=== PATIENT | female | born 1940 | race Caucasian/White ===

== ENCOUNTER 2018-11-14 09:48 | Emergency (ER) | payer OTHER ==
[~2018-11-14] VITALS: Ht 149.9 cm; Wt 49.0 kg
[~2018-11-14 09:48] MED LIST: CORTISONE ACETAT; DOLOGEN CAPLET1 EACH PO; MILLIPRED5 MG; NEURONTIN300 MG; OMEGA-3100 MG; OMEPRAZOLE20 MG; RELAFEN500 MG; TRAMADOL HCL-AP1 TAB; ULTRACET
[2018-11-14] MEDS ORDERED: MOBIC7.5 M1 (10:24)
[2018-11-14] MEDS ORDERED: ZETIA10 MG (10:25)
== END 2018-11-14 15:22 | disposition home or self-care (01) ==
LOC: ER 09:48
DX: K52.89 Other specified noninfective gastroenteritis and colitis (principal)

== ENCOUNTER 2021-07-25 09:18 | Day surgery (SDC) | payer OTHER ==
[~2021-07-25 09:18] MED LIST changes: +LEVOTHYROXINE25 MCG PO; +MOBIC7.5 M1; +ZETIA10 MG
== END 2021-07-25 16:00 | disposition home or self-care (01) ==
LOC: CIR.AMB 09:18
PROVIDERS: ATTEND Orthopaedic Surgery
DX: S62.337A Displaced fracture of neck of fifth metacarpal bone, left hand, initial encounter for closed fracture (principal); E03.9 Hypothyroidism, unspecified; Z20.822 Contact with and (suspected) exposure to COVID-19

== ENCOUNTER 2021-08-09 10:51 | Outpatient (CLI) | payer OTHER | END 2021-08-09 10:52 | disposition home or self-care (01) | LOC: NUCLEAR 10:51 | PROVIDERS: ATTEND Orthopaedic Surgery | DX: M81.0 Age-related osteoporosis without current pathological fracture (principal) ==

== ENCOUNTER 2021-09-07 08:26 | Outpatient (CLI) | payer OTHER | END 2021-09-07 08:27 | disposition home or self-care (01) | LOC: LAB 08:26 | PROVIDERS: ATTEND Orthopaedic Surgery | DX: E21.3 Hyperparathyroidism, unspecified (principal); E56.1 Deficiency of vitamin K; M81.8 Other osteoporosis without current pathological fracture ==

== ENCOUNTER 2021-11-03 14:15 | Outpatient (CLI) | payer OTHER | END 2021-11-03 14:30 | disposition home or self-care (01) | LOC: RAD 14:15 | PROVIDERS: ATTEND Orthopaedic Surgery | DX: S66.325D Laceration of extensor muscle, fascia and tendon of left ring finger at wrist and hand level, subsequent encounter (principal) ==

== ENCOUNTER 2022-01-31 10:33 | Outpatient (CLI) | payer OTHER | END 2022-01-31 10:44 | disposition home or self-care (01) | LOC: MRI 10:33 | PROVIDERS: ATTEND Pain Medicine Interventional Pain Medicine | DX: M47.893 Other spondylosis, cervicothoracic region (principal) | CPT/HCPCS: 72146 ==

== ENCOUNTER 2022-02-03 10:14 | Emergency (ER) | payer OTHER ==
[~2022-02-03] VITALS: Ht 152.4 cm; Wt 53.5 kg
[2022-02-03] MEDS ORDERED: PROLIA60 MG/1 ML IM (10:28)
== END 2022-02-03 12:17 | disposition home or self-care (01) ==
LOC: ER 10:14
DX: S99.911A Unspecified injury of right ankle, initial encounter (principal); W19.XXXA Unspecified fall, initial encounter; Y93.9 Activity, unspecified; Y92.9 Unspecified place or not applicable; Y99.9 Unspecified external cause status

== ENCOUNTER 2022-03-02 13:39 | Outpatient (CLI) | payer OTHER ==
[~2022-03-02 13:39] MED LIST changes: +PROLIA60 MG/1 ML IM
== END 2022-03-02 13:40 | disposition home or self-care (01) ==
LOC: MRI 13:39
PROVIDERS: ATTEND Pain Medicine Interventional Pain Medicine
DX: M54.2 Cervicalgia (principal)
CPT/HCPCS: 72141

== ENCOUNTER → 2022-03-09 13:55 | Outpatient (CLI) | payer OTHER | END | disposition home or self-care (01) | LOC: LAB 13:55 | PROVIDERS: ATTEND Radiology Diagnostic Radiology | DX: I26.99 Other pulmonary embolism without acute cor pulmonale (principal) ==

== ENCOUNTER 2022-03-13 07:50 | Outpatient (CLI) | payer OTHER | END 2022-03-13 07:57 | disposition home or self-care (01) | LOC: TOM 07:50 | DX: I26.99 Other pulmonary embolism without acute cor pulmonale (principal); S27.0XXD Traumatic pneumothorax, subsequent encounter; R06.00 Dyspnea, unspecified | CPT/HCPCS: 71260; Q9965 ==

== ENCOUNTER → 2022-07-13 08:55 | Outpatient (CLI) | payer OTHER | END | disposition home or self-care (01) | LOC: LAB 08:55 | PROVIDERS: ATTEND Internal Medicine Rheumatology | DX: M32.10 Systemic lupus erythematosus, organ or system involvement unspecified (principal); I10 Essential (primary) hypertension; E56.9 Vitamin deficiency, unspecified; E78.2 Mixed hyperlipidemia ==

== ENCOUNTER 2022-09-12 13:02 | Outpatient (CLI) | payer OTHER | END 2022-09-12 13:20 | disposition home or self-care (01) | LOC: MRI 13:02 | PROVIDERS: ATTEND Orthopaedic Surgery | DX: G93.9 Disorder of brain, unspecified (principal); M24.542 Contracture, left hand | CPT/HCPCS: 70551 ==

== ENCOUNTER → 2023-02-21 | Emergency (ER) | payer OTHER ==
[~2023-02-21] VITALS: Ht 157.5 cm; Wt 63.5 kg
[2023-02-21 13:35] LABS: HEMOGLOBIN 14.2 g/dL (12.0-15.00); MEAN CELL VOLUME 94.8 fL (80.00-100.00); MEAN CORPUSCULAR HEMOGLOBIN 32.9 pg (27.00-32.0); MEAN CORPUSCULAR HGB CONC 34.8 g/dl (32.0-36.0); RED BLOOD COUNT 4.32 M/uL (4.00-6.00); RED CELL DISTRIBUTION WIDTH 15.3 % (11.5-14.5)
[2023-02-21 13:43] LABS: PLATELET COUNT 128 K/uL (150-450)
[2023-02-21 14:38] LABS: ALBUMIN 3.3 gm/dL (3.4-5.0); BILIRUBIN TOTAL 1.25 mg/dL (0.3-1.2); BILIRUBIN,CONJUGATED 0.35 mg/dL (0.0-0.2); BILIRUBIN,UNCONJUGATED 0.9 mg/dL (0.0-0.6); CREATININE SERUM 0.8 mg/dL (0.55-1.02); GFR 68.33; POTASSIUM 3.03 mEq/L (3.5-5.1); TOTAL PROTEIN 6.7 gm/dL (6.4-8.2)
[2023-02-21 14:50] LABS: PH,URINE 6.5 (5.0-8.0); URINE APPEARANCE Clear; URINE BILIRRUBIN Negative (NEGATIVE); URINE BLOOD Small; URINE COLOR Yellow; URINE GLUCOSE Negative (NEGATIVE); URINE LEUKOCYTE Negative; URINE NITRATE Negative; URINE PROTEIN Trace (NEGATIVE)
[2023-02-21 14:55] LABS: URINE BACTERIA 41.5 uL (0.0-1933); URINE EPITHELIAL CELLS 4.6 uL (0.0-38.8); URINE RBC 80.7 uL (0.0-20.8)
== END | disposition home or self-care (01) ==
LOC: ER 10:48
PROVIDERS: General Practice
DX: K29.70 Gastritis, unspecified, without bleeding (principal); E03.9 Hypothyroidism, unspecified; Z91.018 Allergy to other foods
CPT/HCPCS: 36415; 93005; 96365; 96366; 99284; J2765; J3490

== ENCOUNTER 2023-03-29 10:23 | Outpatient (CLI) | payer OTHER | END 2023-03-29 10:44 | disposition home or self-care (01) | LOC: RAD 10:23 | PROVIDERS: ATTEND Physical Medicine & Rehabilitation | DX: M25.562 Pain in left knee (principal); Z91.018 Allergy to other foods ==

== ENCOUNTER 2023-05-30 13:41 | Outpatient (CLI) | payer OTHER | END 2023-05-30 13:42 | disposition home or self-care (01) | LOC: RAD 13:41 | PROVIDERS: ATTEND Orthopaedic Surgery | DX: M25.551 Pain in right hip (principal) ==

== ENCOUNTER 2023-06-25 14:05 | Outpatient (CLI) | payer OTHER | END 2023-06-25 14:08 | disposition home or self-care (01) | LOC: TOM 14:05 | PROVIDERS: ATTEND Orthopaedic Surgery | DX: M25.551 Pain in right hip (principal); M16.11 Unilateral primary osteoarthritis, right hip; M41.25 Other idiopathic scoliosis, thoracolumbar region ==

== ENCOUNTER 2023-08-23 10:51 | Outpatient (CLI) | payer OTHER | END 2023-08-23 10:57 | disposition home or self-care (01) | LOC: MRI 10:51 | PROVIDERS: ATTEND Anesthesiology Pain Medicine | DX: M54.50 Low back pain, unspecified (principal); M41.9 Scoliosis, unspecified; M54.16 Radiculopathy, lumbar region | CPT/HCPCS: 72148 ==

== ENCOUNTER 2023-09-03 13:37 | Outpatient (CLI) | payer OTHER | END 2023-09-03 13:38 | disposition home or self-care (01) | LOC: NUCLEAR 13:37 | PROVIDERS: ATTEND Orthopaedic Surgery | DX: M81.0 Age-related osteoporosis without current pathological fracture (principal) ==

== ENCOUNTER 2023-12-03 12:02 | Outpatient (CLI) | payer OTHER | END 2023-12-03 12:08 | disposition home or self-care (01) | LOC: MRI 12:02 | PROVIDERS: ATTEND Orthopaedic Surgery Sports Medicine | DX: M54.50 Low back pain, unspecified (principal) | CPT/HCPCS: 72148 ==